=== PATIENT | male | born 1960 | race African-American/Black ===

== ENCOUNTER 2024-11-12 07:23 | Outpatient (CLI) | payer BC, SELFPAY ==
--- NOTE | ~2024-11-12 | NM_ITS ---
EXAMINATION: NM bone scan whole body DATE: 11/12/2024 12:02 INDICATION: Prostate cancer TECHNIQUE: 25.1 mCi Tc-99m HDP was administered intravenously. Delayed whole- body scintigrams were obtained. COMPARISON: There are no relevant imaging studies at our institution. FINDINGS: Typical pattern of likely degenerative mild joint centered uptake at the bilateral knees, multiple joints in the bilateral feet and at the right upper cervical facet joint. Likely dental disease related increased uptake at the left maxilla and mandible. Mild likely extravasated activity. Over the soft tissues at the volar aspect of the right wrist. No other suspicious foci of abnormal bone uptake to suggest metastatic disease. IMPRESSION: 1. No lesion suspicious for metastatic disease. Reviewed, dictated and finalized at location A.
--- NOTE | ~2024-11-12 | CT_ITS ---
EXAMINATION: CT abdomen pelvis w con DATE: 11/12/2024 08:50 INDICATION: Prostate cancer. TECHNIQUE: Computed tomography (CT) of the abdomen and pelvis was performed with 100 mL Omnipaque 350 intravenous contrast. Automated exposure control and iterative reconstruction technique were employed. The dose-length product was 1092.21 mGy-cm. COMPARISON: None. FINDINGS: The visualized portions of the lung bases demonstrate mild atelectasis. There is a trace right pleural effusion. Cardiomegaly is noted. There are coronary artery calcifications. No pericardial effusion. Calcifications in the liver and spleen are consistent with old granulomatous disease. The gallbladder is normal in size. Gallbladder wall thickening is noted. The pancreas and right adrenal gland are normal. There is a 16 mm mass in left adrenal gland. There are cysts in the kidneys measuring up to 10 mm on the left. There is a right inguinal hernia containing fat. There is diverticulosis o f the colon without evidence of diverticulitis. The appendix is normal. There are no dilated loops of bowel. There are no pathologically enlarged lymph nodes. There is no free intraperitoneal fluid. There is an umbilical hernia containing fat. There is severe lumbar spondylosis. There are bridging endplate osteophytes at multiple levels in the thoracic spine, consistent with diffuse idiopathic skeletal hyperostosis (DISH). IMPRESSION: 1. No evidence of metastatic disease. 2. Umbilical hernia containing fat. 3. Gallbladder wall thickening, which may be seen with interstitial edema, chronic cholecystitis, or chronic liver disease. 4. 16 mm left adrenal mass. In the absence of other known malignancy, this finding is likely an adenoma. Reviewed, dictated and finalized at location E. IMPRESSION: 1. No evidence of metastatic disease. 2. Umbilical hernia containing fat. 3. Gallbladder wall thickening, which may be seen with interstitial edema, [employer] stephani cholecystitis, or chronic liver disease. 4. 16 mm left adrenal mass. In the absence of other known malignancy, this find ing is likely an adenoma.
[2024-11-12 08:40] LABS: Estimated Glomerular Filt Rate > 60
== END 2024-11-12 07:24 | disposition home or self-care (01) ==
LOC: ANHIMG 07:35
PROVIDERS: Visit Provider Urology
DX: C61 Malignant neoplasm of prostate (principal); K42.9 Umbilical hernia without obstruction or gangrene; D35.02 Benign neoplasm of left adrenal gland
CPT/HCPCS: 74177; 78306; A9503; Q9967